=== PATIENT | male | born 1965 | race Caucasian/White ===

== ENCOUNTER 2017-12-11 11:06 | Emergency (ER) | payer OTHER ==
[~2017-12-11] VITALS: Ht 175.3 cm; Wt 112.0 kg
[~2017-12-11 11:06] MED LIST: LRT5 PO
[2017-12-11 11:19] VITALS: Ht 175.3 cm; Wt 112.0 kg
[2017-12-11] MEDS ORDERED: IBUP-103 PO (11:43)
[2017-12-11] MEDS ORDERED: KETOROLAC TROMETHAMINE 30 MG/ML VIAL IV STA (11:43)
[2017-12-11] MEDS ORDERED: OPTIRAY 320 IV PRN (12:00)
[2017-12-11 12:25] LABS: BASO % 0.5 %; BASO ABS # 0.04 K/uL (0-0.2); EOS % 3.3 %; EOS ABS # 0.27 K/uL (0-0.5); HEMATOCRIT 41.1 % (42-52); HEMOGLOBIN 14.3 g/dL (14.0-18.0); IG# 0.01 K/uL (0.00-0.02); LYMPH ABS # 1.87 K/uL (1.2-3.4); MEAN CELL VOLUME 90.9 fL (80-100); MEAN CORPUSCULAR HEMOGLOBIN 31.6 pg (25-34); MEAN CORPUSCULAR HGB CONC 34.8 g/dl (32-36); MEAN PLATELET VOLUME 11.1 fL (7.4-10.4); MONO % 9.2 %; MONO ABS # 0.75 K/uL (0.11-0.59); NEUT % 63.9 %; PLATELET COUNT 165 K/uL (130-400); RED CELL DISTRIBUTION WIDTH CV 12.8 % (11.5-14.5); WHITE BLOOD COUNT 8.14 K/uL (4.8-10.8)
[2017-12-11 12:29] LABS: ISTAT IONIZED CALCIUM 1.25 mmol/l (1.12-1.32); ISTAT POTASSIUM 4.4 mEq/L (3.3-5.0)
[2017-12-11 12:45] LABS: CALCIUM 9.4 mg/dl (8.5-10.1); CREATININE 1.09 mg/dl (0.60-1.40); POTASSIUM 4.4 mmol/L (3.5-5.1)
--- NOTE | 2017-12-11 12:45 | DIAGNOSTIC IMAGING REPORT ---
FACIAL-MAXILLOFACIAL WITH CLINICAL HISTORY: 52 years-old Male presenting with left sided mandibular pain and swelling. TECHNIQUE: Multidetector CT of the face was performed without the use of intravenous contrast. IV contrast: None. A dose lowering technique was used consistent with the principles of ALARA (as low as reasonably achievable). COMPARISON: 08/02/2009. CT DOSE (mGy.cm): The estimated cumulative dose is 732.97 mGy.cm. FINDINGS: Esthetic Dermatologist topogram: Unremarkable. No evidence of superficial soft tissue asymmetry or infiltration. Specifically the region overlying the left mandible is unremarkable. No displacement of the pericardial fat planes. No suspicious nodular enhancement. Orbits normal. Previously noted nasal bone fractures are less apparent on the current exam. Polypoid mucosal thickening in the left maxillary sinus. Mucosal thickening in anterior ethmoid air cells and the left frontal sinus. Mastoid air cells clear. No acute osseous injury. Temporomandibular joints intact though degenerative changes of the right temporomandibular joint noted. Mandible intact. Prominent dental caries noted in the right maxillary second molar. No fluid collection or evidence of an odontogenic abscess. Amalgam limits evaluation of the oral cavity. Upper cervical spine within normal limits. Vasculature patent. IMPRESSION: 1. No abnormality in the region of clinical concern along the left mandible. 2. No acute osseous injury. 3. 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 No evidence of an odontogenic abscess. 4. 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 5. 6. 7. Electronically signed by: Fermin Barrera M.D. 8. 12/11/2017 12:44 PM 9. 10. Dictated Date/Time: 12/11/2017 12:36 PM
[2017-12-11] MEDS ORDERED: HYDR-5688 PO (13:07)
[2017-12-11] MEDS ORDERED: METH4PAK PO (13:07)
[2017-12-11 13:21] VITALS: BP 137/79; PULSE 65; TEMP 36.8; O2SAT 98
--- NOTE | 2017-12-13 09:03 | EMERGENCY ROOM VISIT NOTE ---
ED Visit Note First contact with patient: 11:33 Chief Complaint: Left-sided facial pain and swelling. History of Present Illness: Mr. Wren is a 52-year-old white male who ambulates into the ED accompanied by female friend complaining of left-sided facial pain and swelling. Patient reports 2 days ago he started developing left-sided facial pain in the preauricular area just anterior to the tragus. He reports initially his pain was mild and gradually increased in intensity. Currently he describes his pain as a sharp and throbbing discomfort. He rates his discomfort 10/10. The pain has now extended from the preauricular area down into the mandible and into the temporal area. His pain worsens with palpation and chewing. He has not identified any alleviating factors related to the pain. He reports she's been using ibuprofen without relief of his discomfort. Associated with his pain he now over the last 24 hours has been seeing swelling in the same areas his pain. He reported his his pain was so severe last night he could not sleep. He denies any associated symptoms including recent dental surgeries, recent trauma, dizziness, lightheadedness, hearing changes, tinnitus, ear drainage, dental pain, fevers, chills, sweats, skin eruptions, skin color changes, abnormal neurological symptoms, difficulty swallowing, voice changes. Review of Systems: As noted above in history of present illness. All body systems were reviewed and found to be negative as noted above. Past Medical History: Status post hernia repair. Current Medications: Patient denies. Allergies to Medications: Patient denies. Social History: Patient is currently employed; he feels safe in his home environment; he admits to tobacco and alcohol use. Physical Examination: Vital Signs: Date Time Temp Pulse Resp B/P (MAP) Pulse Ox O2 Delivery O2 Flow Rate FiO2 12/11/17 13:21 36.8 65 20 137/79 98 Room Air 12/11/17 11:19 36.8 73 18 108/64 99 Room Air GENERAL: 52-year-old male in mild to moderate distress due to pain, nontoxic- appearing, afebrile and hemodynamically stable. NEUROLOGICAL: Awake, alert and oriented to person, place and time. Answering questions appropriately and following commands. Normal gait. Good hand eye coordination. No focal motor or sensory deficits. Cranial nerves II through XII grossly intact. SKIN: Warm, dry and pink. No soft tissue eruptions or trauma noted. HEENT: Atraumatic and normocephalic. No tenderness or erythema over the frontal or maxillary sinuses. Moderate tenderness from the left temporal area down into the preauricular area and the body of the mandible. In this area there is also mild swelling but no erythema. I do not appreciate any bony deformity or crepitus. External left ear is nontender. Auditory canal is pink and patent. Tympanic membrane was not erythematous or edematous. No pre-or postauricular lymphadenopathy. No tenderness or swelling over the mastoid process. Smooth movement at the TMJ without any clicking or popping. PERRLA. EOMI without nystagmus. Sclera white and conjunctiva pink. No drainage from naris. Oral cavity moist and pink. Uvula is midline and no abscesses are seen. Pharynx is nonerythematous or edematous. Speech normal. Patient has multiple decaying teeth both on the left maxillary and right maxillary area. These teeth are nontender. The gingiva is pink and not erythematous. No abscess or major signs of infection are noted. No submandibular or cervical lymphadenopathy. Trachea midline. No jugular venous distention. BACK: No tenderness over the bony spine. No CVA tenderness. THORAX: Lungs sounds are clear to auscultation and equal bilaterally with symmetrical chest wall. ABDOMEN: Flat, soft and nontender. Positive bowel sounds in all quadrants. No guarding, rigidity or organomegaly. EXTREMITIES: Moves all extremities well on command and with purpose. All distal neurovascular statuses are intact and equal bilaterally. ED Course: Patient is assessed as noted above. Patient's medication list was reviewed. Laboratory Testing: Test 12/11/17 12:10 12/11/17 12:13 Range/Units White Blood Count 8.14 4.8-10.8 K/uL Red Blood Count 4.52 4.7-6.1 M/uL Hemoglobin 14.3 14.0-18.0 g/dL Hematocrit 41.1 42-52 % Mean Corpuscular Volume 90.9 80-100 fL Mean Corpuscular Hemoglobin 31.6 25-34 pg Mean Corpuscular Hemoglobin Concent 34.8 32-36 g/dl Platelet Count 165 130-400 K/uL Mean Platelet Volume 11.1 7.4-10.4 fL Neutrophils (%) (Auto) 63.9 % Lymphocytes (%) (Auto) 23.0 % Monocytes (%) (Auto) 9.2 % Eosinophils (%) (Auto) 3.3 % Basophils (%) (Auto) 0.5 % Neutrophils # (Auto) 5.20 1.4-6.5 K/uL Lymphocytes # (Auto) 1.87 1.2-3.4 K/uL Monocytes # (Auto) 0.75 0.11-0.59 K/uL Eosinophils # (Auto) 0.27 0-0.5 K/uL Basophils # (Auto) 0.04 0-0.2 K/uL RDW Standard Deviation 42.0 36.4-46.3 fL RDW Coefficient of Variation 12.8 11.5-14.5 % Immature Granulocyte % (Auto) 0.1 % Immature Granulocyte # (Auto) 0.01 0.00-0.02 K/uL Erythrocyte Sedimentation Rate 3 0-14 mm/hr Sodium Level 138 136-145 mmol/L Potassium Level 4.4 3.5-5.1 mmol/L Chloride Level 103 98-107 mmol/L Carbon Dioxide Level 29 21-32 mmol/L Anion Gap 6.0 19.0 16-25 mmol/L Blood Urea Nitrogen 13 7-18 mg/dl Creatinine 1.09 0.60-1.40 mg/dl Est Creatinine Clear Calc Drug Dose 98.9 ml/min Estimated GFR () 90.6 Estimated GFR (Non- 78.2 BUN/Creatinine Ratio 12.4 10-20 Random Glucose 103 70-99 mg/dl Calcium Level 9.4 8.5-10.1 mg/dl C-Reactive Protein 1.43 0-0.29 mg/dl Bedside Hemoglobin 14.3 14.0-18.0 g/dl Bedside Hematocrit 42 42-52 % Bedside Sodium 141 135-144 mEq/L Bedside Potassium 4.4 3.3-5.0 mEq/L Bedside Chloride 100 101-112 mEq/L Bedside Total CO2 27 24-31 mEq/l Bedside Blood Urea Nitrogen 15 7-18 mg/dl Bedside Creatinine 1.0 0.6-1.3 mg/dl Bedside Glucose (other) 106 70-99 mg/dl Bedside Ionized Calcium (Nata) 1.25 1.12-1.32 mmol/l Facial CT with Contrast: Was reviewed by myself and read by the radiologist showing no abnormal findings along the left mandible, no acute osseous injury, dental disease over the right maxillary second molar and degenerative changes to the right TMJ. Also noted was left maxillary and anterior ethmoid sinus disease. An IV lock was initiated and patient received 30 mg of Toradol IV. Patient was reassessed multiple times during his stay in the emergency department. Patient was educated about today's findings and instructed on his treatment plan ; he verbalized understanding and agreement with this land. Clinical Impression: Left-sided facial pain and swelling. Decision-Making: Initially my differential diagnosis I consider dental abscess, parotitis, parotid calculus, temporal arteritis, otitis externa and other causes. Disposition: Patient discharged home in stable condition accompanied by his girlfriend; prior to departure he was reassessed and subjectively reported he was feeling better and rated his discomfort 3/10. Plan: Patient was placed on a Medrol Dosepak and a sliding pain medication scale of ibuprofen, acetaminophen and Bond; he was instructed on these medications use. His name was checked in the state database and no red flags were noted and he was given appropriate narcotic precautions. Other comfort measures were discussed with the patient including the use of ice and the use of a liquid/mechanical soft diet. Patient was encouraged to follow-up with his PCP. Patient was encouraged return ED for worse/uncontrolled pain, uncontrolled swelling, skin redness, fevers, inability to swallow, visual or hearing changes or any new/concerning symptoms.
== END 2017-12-11 13:23 | disposition home or self-care (01) ==
LOC: C.EDB 11:08 → C.EDD 13:23
DX: R51 Headache (principal); R22.0 Localized swelling, mass and lump, head; F17.200 Nicotine dependence, unspecified, uncomplicated